=== PATIENT | female | born 1985 | race African-American/Black ===

== ENCOUNTER 2019-04-19 13:34 | Emergency (ER) | payer MEDICAID ==
[~2019-04-19] VITALS: Ht 160 cm; Wt 61.2 kg
[2019-04-19 14:33] VITALS: BP 123/86
[2019-04-19] MEDS ORDERED: cefTRIAXone SOD 1,000 MG VL IM ONE (15:00)
[2019-04-19] MEDS ORDERED: IBUPROFEN 600 MG TAB PO ONE (15:30)
== END 2019-04-19 15:51 | disposition home or self-care (01) ==
LOC: ER 13:39
DX: L02.01 Cutaneous abscess of face (principal); J45.909 Unspecified asthma, uncomplicated; E11.9 Type 2 diabetes mellitus without complications; F17.210 Nicotine dependence, cigarettes, uncomplicated; F12.10 Cannabis abuse, uncomplicated; Z88.6 Allergy status to analgesic agent
CPT/HCPCS: 10060; 87075; 96372; 99283; J0696

== ENCOUNTER 2019-04-24 10:02 | Emergency (ER) | payer MEDICAID ==
[~2019-04-24] VITALS: Ht 160 cm; Wt 56.7 kg
[2019-04-24 10:29] VITALS: BP 129/85
== END 2019-04-24 12:12 | disposition home or self-care (01) ==
LOC: ER 10:11
DX: L02.01 Cutaneous abscess of face (principal); E11.9 Type 2 diabetes mellitus without complications; J45.909 Unspecified asthma, uncomplicated; F17.210 Nicotine dependence, cigarettes, uncomplicated; F12.90 Cannabis use, unspecified, uncomplicated; Z88.8 Allergy status to other drugs, medicaments and biological substances; Z48.01 Encounter for change or removal of surgical wound dressing

== ENCOUNTER 2019-04-26 13:50 | Emergency (ER) | payer MEDICAID ==
[~2019-04-26] VITALS: Ht 160 cm; Wt 60.8 kg
[2019-04-26 14:07] VITALS: BP 132/92
== END 2019-04-26 14:57 | disposition home or self-care (01) ==
LOC: ER 13:53
DX: L02.01 Cutaneous abscess of face (principal); F17.210 Nicotine dependence, cigarettes, uncomplicated; F12.10 Cannabis abuse, uncomplicated; J45.909 Unspecified asthma, uncomplicated; E11.9 Type 2 diabetes mellitus without complications; Z88.8 Allergy status to other drugs, medicaments and biological substances; Z48.01 Encounter for change or removal of surgical wound dressing

== ENCOUNTER 2019-10-20 19:05 | Emergency (ER) | payer MEDICAID ==
[~2019-10-20] VITALS: Ht 160 cm; Wt 64.9 kg
[2019-10-21 00:13] LABS: Basophils # (auto) 0.1 uL; Basophils % (auto) 0.7 % (0.0-2.0); Eosinophils # (auto) 0.1 uL; Eosinophils % (auto) 1.7 % (0.0-7.0); Hematocrit 45.8 % (36.0-46.0); Hemoglobin 15.4 g/dL (12.2-16.2); Lymphocytes # (auto) 3.1 uL; Lymphocytes % (auto) 40.3 % (10.0-50.0); Mean Corpuscular Hemoglobin 27.2 pg (28.0-32.0); Mean Corpuscular Hgb Conc. 33.6 g/dL (32.0-36.0); Mean Corpuscular Volume 81.1 fL (80.0-100.0); Monocytes # (auto) 0.4 uL; Monocytes % (auto) 5.8 % (0.0-12.0); Neutrophils % (auto) 51.5 % (37.0-80.0); Nucleated Red Blood Cells % 0.1 %; Platelet Count (auto) 485 10^3/uL (140-450); Red Blood Cells 5.65 10^6/uL (4.0-5.20); Red Cell Distribution Width 14.2 % (11.8-14.3); White Blood Cell 7.8 10^3/uL (4.4-10.8)
[2019-10-21 00:31] LABS: Potassium 3.2 mmol/L (3.5-5.1)
[2019-10-21 00:34] LABS: Albumin 3.9 g/dL (3.4-5.0); Calcium 8.8 mg/dL (8.5-10.1)
[2019-10-21 00:42] LABS: Bilirubin, Total 0.3 mg/dL (0.2-1.0)
[2019-10-21 01:36] LABS: Urine Bacteria MANY /hpf (None Seen); Urine Blood Negative /uL (Negative); Urine WBC 32 /hpf (0 - 5)
[2019-10-21 04:56] VITALS: BP 95/70
== END 2019-10-21 05:10 | disposition home or self-care (01) ==
LOC: ER 19:05
DX: E11.43 Type 2 diabetes mellitus with diabetic autonomic (poly)neuropathy (principal); E11.65 Type 2 diabetes mellitus with hyperglycemia; J45.909 Unspecified asthma, uncomplicated; F17.210 Nicotine dependence, cigarettes, uncomplicated; F12.10 Cannabis abuse, uncomplicated
CPT/HCPCS: 36415; 80053; 81001; 81025; 82962; 85025

== ENCOUNTER → 2024-06-13 | Emergency (ER) | payer MEDICAID, OTHER ==
[~2024-06-13] VITALS: Ht 162.6 cm; Wt 59.0 kg
[2024-06-13 15:50] VITALS: BP 138/81; PULSE 112; RESP 18; TEMP 97.8; O2SAT 100
== END | disposition home or self-care (01) ==
LOC: ER 16:33
DX: T25.221A Burn of second degree of right foot, initial encounter (principal); J45.909 Unspecified asthma, uncomplicated; F17.200 Nicotine dependence, unspecified, uncomplicated; X08.8XXA Exposure to other specified smoke, fire and flames, initial encounter; Y93.89 Activity, other specified; Y92.89 Other specified places as the place of occurrence of the external cause; Y99.8 Other external cause status
CPT/HCPCS: 16000